=== PATIENT | female | born 1990 | race Two or more races ===

== ENCOUNTER 2020-11-03 21:34 | Emergency (ER) | payer OTHER ==
[~2020-11-03] VITALS: Ht 157.5 cm; Wt 77.3 kg
[2020-11-03 21:38] VITALS: BP 109/58
== END 2020-11-04 00:13 | disposition left against medical advice (07) ==
LOC: ER 21:35
DX: O26.90 Pregnancy related conditions, unspecified, unspecified trimester (principal); Z3A.00 Weeks of gestation of pregnancy not specified; Z53.21 Procedure and treatment not carried out due to patient leaving prior to being seen by health care provider